=== PATIENT | female | born 2000 | race Hispanic/Latino ===

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

== ENCOUNTER 2021-01-18 11:19 | Emergency (ER) | payer MEDICAID ==
[~2021-01-18] VITALS: Ht 157.5 cm; Wt 79.4 kg
[~2021-01-18 11:19] MED LIST: CEPH500B PO; DICY20TA2 PO; PHEN-847 PO
[2021-01-18] MEDS ORDERED: CEFTRIAXONE 1G VIAL IM SCH (13:00)
[2021-01-18] MEDS ORDERED: IBUPROFEN 600 MG TABLET PO SCH (13:00)
[2021-01-18] MEDS ORDERED: IBUP-2070 PO (13:01)
[2021-01-18] MEDS ORDERED: SULF1TAB42 PO (13:01)
[2021-01-18] MEDS ORDERED: CEPH500B PO (13:01)
[2021-01-18] MEDS ORDERED: MUPI22OI2 TP (13:01)
[2021-01-18 14:16] VITALS: BP 92/71
[2021-01-19] MEDS ORDERED: CEPH500B PO (12:57)
== END 2021-01-18 14:17 | disposition home or self-care (01) ==
LOC: EDH 11:19
DX: N76.2 Acute vulvitis (principal); F31.9 Bipolar disorder, unspecified; F41.9 Anxiety disorder, unspecified; F90.9 Attention-deficit hyperactivity disorder, unspecified type; Z79.1 Long term (current) use of non-steroidal anti-inflammatories (NSAID)

== ENCOUNTER 2021-01-19 10:44 | Emergency (ER) | payer MEDICAID ==
[~2021-01-19] VITALS: Ht 154.9 cm; Wt 79.4 kg
[~2021-01-19 10:44] MED LIST changes: +IBUP-2070 PO; +MUPI22OI2 TP; +SULF1TAB42 PO
[2021-01-19 12:27] LABS: BASOPHILS % (AUTO) 0.4 % (0.0-5.0); EOSINOPHILS % (AUTO) 1.5 % (0.0-8.0); HEMATOCRIT 34.3 % (36-48); LYMPHOCYTES % (AUTO) 27.3 % (21.0-51.0); MEAN CORPUSCULAR HEMOGLOBIN 26.2 pg (27.0-33.0); MEAN CORPUSCULAR HGB CONC 31.5 g/dL (32.0-36.0); MEAN CORPUSCULAR VOLUME 83.3 fL (80-100); MONOCYTES % (AUTO) 6.8 % (3.0-13.0); NEUTROPHILS % (AUTO) 63.8 % (40.0-77.0); PLATELET COUNT (AUTO) 239 K/uL (130-400); RED BLOOD CELL COUNT(AUTO) 4.12 MIL/uL (4.00-5.50); RED CELL DISTRIBUTION WIDTH 13.6 % (11.0-15.5); WHITE BLOOD COUNT (AUTO) 9.1 K/uL (4.8-10.8)
[2021-01-19 12:41] LABS: CREATININE 0.8 mg/dL (0.5-1.5)
[2021-01-19 12:49] LABS: ALBUMIN 3.7 g/dL (3.5-5.0); BILIRUBIN,TOTAL 0.2 mg/dL (0.2-1.0); CRP QUANTITATIVE 3.9 mg/L (0.00-9.0); TOTAL PROTEIN, SERUM 8.1 g/dL (6.0-8.3)
[2021-01-19] MEDS ORDERED: CEPH500B PO (12:57)
[2021-01-19] MEDS ORDERED: CEPHALEXIN 500 MG CAPSULE PO SCH (13:00)
[2021-01-19 13:36] VITALS: BP 98/70
== END 2021-01-19 15:34 | disposition home or self-care (01) ==
LOC: EDH 10:44
DX: N76.4 Abscess of vulva (principal); E66.9 Obesity, unspecified; Z79.1 Long term (current) use of non-steroidal anti-inflammatories (NSAID); Z68.33 Body mass index [BMI] 33.0-33.9, adult
CPT/HCPCS: 36415; 80053; 85025; 86140; 87070; 87076; 87077; 87186

== ENCOUNTER 2025-02-23 13:07 | Emergency (ER) | payer MEDICAID ==
[~2025-02-23] VITALS: Ht 154.9 cm; Wt 86.2 kg
[~2025-02-23 13:07] MED LIST changes: +IBUP-1492 PO; -IBUP-2070 PO
[2025-02-23 13:33] LABS: IMMATURE GRANULOCYTE ABSOLUTE 0.01 K/uL (0-1); NUCLEATED RED BLOOD CELLS 0.0 % (0.0-0.19); PLATELET COUNT (AUTO) 191 K/uL (130-400); RED BLOOD CELL COUNT(AUTO) 4.86 MIL/uL (4.00-5.50); RED CELL DISTRIBUTION WIDTH 13.3 % (11.0-15.5); WHITE BLOOD COUNT (AUTO) 5.0 K/uL (4.8-10.8)
[2025-02-23 13:41] LABS: CREATININE 0.7 mg/dL (0.5-1.0); GLOMERULAR FILTR. RATE CALC 125.0 mL/min (>90); GLUCOSE,RANDOM 112.0 mg/dL (70-105); SODIUM SERUM 139.0 mmol/L (136-145); UREA NITROGEN, BLOOD 9.0 mg/dL (7-18)
[2025-02-23 13:43] LABS: INR 0.96 (0.85-1.15)
[2025-02-23 13:48] LABS: APPEARANCE,URINE CLEAR (CLEAR); GLUCOSE, URINE (UA) NEGATIVE (NEGATIVE); LEUKOCYTE ESTERASE ,URINE 250 Leu/uL (NEGATIVE); NITRATE,URINE NEGATIVE (NEGATIVE); OCCULT BLOOD,URINE MODERATE (NEGATIVE)
[2025-02-23 13:51] LABS: HCG,QUALITATIVE URINE NEGATIVE (NEGATIVE)
[2025-02-23 13:52] LABS: ASPARTATE AMINOTRANSFERASE 29.0 U/L (10-37); HCG,QUANTITATIVE 0.0 mIU/mL (0-5); TOTAL PROTEIN, SERUM 8.0 g/dL (6.0-8.3)
[2025-02-23 13:53] LABS: SQUAMOUS EPITHELIAL CELL,UR MOD /HPF (0-2)
[2025-02-23 14:00] VITALS: BP 114/68; PULSE 80; RESP 16; TEMP 97.2; O2SAT 97
[2025-02-23] MEDS: FAMOTIDINE 20MG VIAL IV ONE (14:03)
[2025-02-23] MEDS ORDERED: CEPH500B PO (14:23)
--- NOTE | 2025-02-23 14:23 | ERN ---
General Chief Complaint: Abdominal Pain Stated Complaint: ABDOMINAL PAIN Time Seen by MD: 13:11 History of Present Illness Initial Comments 24-year-old female no past medical history came in for abdominal pain. Patient denies nausea vomitings associated with the symptoms. Patient also denies fever chills. Patient otherwise has no concerns. Allergies: Coded Allergies: No Known Drug Allergies (Unverified Allergy, Unknown, 10/09/18) Home Meds Active Scripts Cephalexin Monohydrate (Keflex) 500 Mg Cap, 500 MG PO TID for 7 Days, #21 CAP Prov:KHARI MONTANO 01/19/21 Ibuprofen (Ibuprofen) 600 Mg Tablet, 600 MG PO Q6H PRN for PAIN, #15 TAB Prov:REENA JIMÉNEZ 01/18/21 Mupirocin (Mupirocin Ointment) 22 Gm Oint, 1 APPLIC TP BID for 10 Days, #30 G Prov:REENA JIMÉNEZ 01/18/21 Cephalexin Monohydrate (Keflex) 500 Mg Cap, 500 MG PO TID for 10 Days, #30 CAP Prov:REENA JIMÉNEZ 01/18/21 Sulfamethoxazole/Trimethoprim (Bactrim Ds Tablet) 1 Each Tablet, 1 TAB PO BID for 10 Days, #20 TAB 0 Refills Prov:REENA JIMÉNEZ 01/18/21 Phenazopyridine HCl (Pyridium) 200 Mg Tab, 200 MG PO TIDP, #6 TAB 0 Refills Prov:VALENTIN MATUTE MD 08/05/20 Cephalexin Monohydrate (Keflex) 500 Mg Cap, 500 MG PO QID, #40 CAP 0 Refills Prov:VALENTIN MATUTE MD 08/05/20 Dicyclomine HCl (Bentyl) 20 Mg Tab, 20 MG PO Q6HPRN, #20 TAB 0 Refills Prov:VALENTIN MATUTE MD 08/05/20 Past Medical History Past Medical History: No Pertinent History Medical History Other: Obesity Past Surgical History: None Social History Social History: Negative ROS Dictation Abdominal pain Physical Exam General Appearance: (+) no apparent distress, (+) apparent distress Orientation: (+) alert, (+) oriented x 3 Respiratory: (+) chest non-tender, (+) lungs clear Heart: (+) regular, (+) no gallop Vascular: (+) no edema, (+) normal peripheral pulse Gastrointestinal: (+) soft, (+) non-tender, (+) no organomegaly, (+) bowel sound present Extremities: (+) normal range of motion, (+) non-tender Results Laboratory and Microbiology Lab and Micro Result Laboratory Tests Test 02/23/25 13:01 02/23/25 13:20 Urine Color YELLOW (YELLOW) Urine Appearance CLEAR (CLEAR) Urine pH 5.5 (5.0-8.0) Urine Specific Paradox 1.040 (1.001-1.031) Urine Protein 20 mg/dL (NEGATIVE) H Urine Glucose (UA) NEGATIVE mg/dL (NEGATIVE) Urine Ketones NEGATIVE mg/dL (NEGATIVE) Urine Occult Blood MODERATE (NEGATIVE) H Urine Nitrate NEGATIVE (NEGATIVE) Urine Bilirubin NEGATIVE mg/dL (NEGATIVE) Urine Urobilinogen 3 mg/dL (0.2-1.0) H Urine Leukocyte Esterase 250 Bryce/uL (NEGATIVE) H Urine RBC 2-5 /HPF (0-1) H Urine WBC 6-10 /HPF (0-1) H Urine Squamous Epithelial Cells MOD /HPF (0-2) Urine Bacteria Rare /HPF (None Seen) Urine HCG, Qualitative NEGATIVE (NEGATIVE) White Blood Count 5.0 K/uL (4.8-10.8) Red Blood Count 4.86 MIL/uL (4.00-5.50) Hemoglobin 14.1 g/dL (12.0-16.0) Hematocrit 41.8 % (36-48) Mean Corpuscular Volume 86.0 fL (79-99) Mean Corpuscular Hemoglobin 29.0 pg (27.0-33.0) Mean Corpuscular Hemoglobin Concent 33.7 g/dL (32.0-36.0) Red Cell Distribution Width 13.3 % (11.0-15.5) Platelet Count 191 K/uL (130-400) Mean Platelet Volume 11.5 fL (7.5-10.5) H Immature Granulocyte % (Auto) 0.2 % (0-1) Neutrophils (%) (Auto) 31.0 % (40.0-77.0) L Lymphocytes (%) (Auto) 53.8 % (21.0-51.0) H Monocytes (%) (Auto) 11.0 % (3.0-13.0) Eosinophils (%) (Auto) 3.6 % (0.0-8.0) Basophils (%) (Auto) 0.4 % (0.0-5.0) Neutrophils # (Auto) 1.6 K/uL (1.8-7.7) L Lymphocytes # (Auto) 2.7 K/uL (1.0-4.8) Monocytes # (Auto) 0.6 K/uL (0.1-1.0) Eosinophils # (Auto) 0.18 K/uL (0.00-0.70) Basophils # (Auto) 0.02 K/uL (0.00-0.20) Absolute Immature Granulocyte (auto 0.01 K/uL (0-1) Nucleated Red Blood Cells 0.0 % (0.0-0.19) Prothrombin Time 10.2 SEC (9.6-11.6) Prothromb Time International Ratio 0.96 (0.85-1.15) Activated Partial Thromboplast Time 31.5 SEC (26.3-35.5) Sodium Level 139 mmol/L (136-145) Potassium Level 4.1 mmol/L (3.5-5.1) Chloride Level 104 mmol/L (101-111) Carbon Dioxide Level 27 mmol/L (21-32) Blood Urea Nitrogen 9 mg/dL (7-18) Creatinine 0.7 mg/dL (0.5-1.0) Glomerular Filtration Rate Calc 125 mL/min (>90) Random Glucose 112 mg/dL (70-105) H Total Calcium 8.5 mg/dL (8.5-10.1) Total Bilirubin 0.2 mg/dL (0.2-1.0) Direct Bilirubin 0.1 mg/dL (0.0-0.3) Aspartate Amino Transf (AST/SGOT) 29 U/L (10-37) Alanine Aminotransferase (ALT/SGPT) 51 U/L (12-78) Alkaline Phosphatase 105 U/L (50-136) Total Protein 8.0 g/dL (6.0-8.3) Albumin 3.6 g/dL (3.5-5.0) Human Chorionic Gonadotropin, Quant 0 mIU/mL (0-5) MDM MDM: Differential diagnosis: Rationale: Tests considered and ordered secondary to shared decision making include: Previous outside records reviewed: Old ER visits. Risk of complication and/or morbidity or mortality of patient management: None Medications-Per medication reconciliation Need for hospitalization: Patient does not meet criteria for hospitalization. Need for emergency major/minor surgery: No There are no social concerns with this patient. Prescription drug management Prescriptions will include symptomatic care Patient's prior external medical records from other ER visits were reviewed by me as indicated. Prior testing and results from previous visits were reviewed. Prior tests were taken into account with medical decision making and resource utilization, independent historian/historians were used to obtain complete medical history. I independently interpreted the test that were performed, results were reviewed by me and considered findings on radiology if ordered. Medical management and examination interpretation discussions were had by me with other qualified healthcare professionals as indicated for the patient's care. ED Course Orders Procedure Category Date Status Time Cbc With Differential LAB 02/23/25 Complete 13:11 Basic Metabolic Panel LAB 02/23/25 Complete 13:11 Hepatic Function Panel LAB 02/23/25 Complete 13:11 Hcg,Quantitative LAB 02/23/25 Complete 13:11 ,Urine Test LAB 02/23/25 Complete 13:11 Pt And Ptt LAB 02/23/25 Complete 13:11 Urinalysis LAB 02/23/25 Complete W/Microscopic 13:11 Ondansetron 4mg Inj PHA 02/23/25 Complete (Zofran 4mg Inj) 13:30 Famotidine 20mg Vial PHA 02/23/25 Complete (Pepcid 20mg Vial) 13:30 Culture Urine RADHA 02/23/25 In Process 13:50 Ketorolac PHA 02/23/25 In Process Tromethamine 30mg/Ml 14:30 Current Medications Medications (Trade) Dose Ordered Sig/Da Route PRN Reason Start Time Stop Time Status Last Admin Dose Admin Famotidine (Pepcid 20mg Vial) 20 mg ONCE ONCE IV 02/23/25 13:30 02/23/25 13:31 DC 02/23/25 14:03 Ketorolac Tromethamine (toRADol) 30 mg ONCE ONCE IVP 02/23/25 14:30 02/23/25 14:31 Ondansetron HCl (zoFRAN 4MG INJ) 4 mg ONCE ONCE IVP 02/23/25 13:30 02/23/25 13:31 DC 02/23/25 14:03 Vital Signs Date Time Temp Pulse Resp B/P (MAP) Pulse Ox O2 Delivery O2 Flow Rate FiO2 02/23/25 13:08 98.2 90 16 128/77 99 Room Air DX & DISP Disposition: Discharge Departure Impression: Primary Impression: UTI (urinary tract infection) Condition: Stable Scripts Cephalexin Monohydrate (Keflex) 500 Mg Cap 500 MG PO BID for 7 Days, #14 CAP Prov: LAURA SALDANA MD 02/23/25 Referrals: SELF,REFERRAL (PCP) LAURA SALDANA MD Feb 23, 2025 14:23
== END 2025-02-23 14:50 | disposition home or self-care (01) ==
LOC: EDH 13:07
DX: N39.0 Urinary tract infection, site not specified (principal); E66.9 Obesity, unspecified; Z68.35 Body mass index [BMI] 35.0-35.9, adult
CPT/HCPCS: 99284; 96374; 96375 ×2; 80076; 80048; 84702; 85025; 85610; 85730; 87086; 81001; 81025; 36415; J1885; J1308; J2405